=== PATIENT | female | born 1980 | race Caucasian/White ===

== ENCOUNTER 2022-12-06 11:26 | Outpatient (CLI) | payer BC, SELFPAY ==
[2022-12-06 11:51] LABS: Basophils Absolute Auto 0.01 K/mm3 (0.00-0.10); Basophils Percent Auto 0.2 % (0.0-1.0); Eosinophils Absolute Auto 0.07 K/mm3 (0.02-0.50); Eosinophils Percent Auto 1.2 % (1.0-6.0); Hematocrit 36.7 % (35.0-49.0); Hemoglobin 12.9 g/dL (12.0-15.0); Immature Granulocyte Absolute 0.01 K/mm3 (0.00-0.00); Immature Granulocyte Percent A 0.2 % (0.0-0.0); Lymphocytes Absolute Auto 1.25 K/mm3 (1.10-4.50); Lymphocytes Percent Auto 21.6 % (18.0-42.0); Mean Corpuscular HGB Conc 35.1 g/dL (32.0-36.0); Mean Corpuscular Hemoglobin 29.7 pg (27.0-31.0); Mean Corpuscular Volume 84.4 fL (78.0-102.0); Mean Platelet Volume 9.9 fl (9.2-11.8); Monocytes Absolute Auto 0.26 K/mm3 (0.10-0.90); Monocytes Percent Auto 4.5 % (2.0-11.0); Neutrophils Absolute Auto 4.2 K/mm3 (1.7-7.2); Neutrophils Percent Auto 72.3 % (50.0-70.0); Platelet Count Result 282 K/mm3 (150-420); Red Blood Count 4.35 M/mm3 (4.20-5.40); Red Cell Distribution Width 13.7 % (11.6-14.4); White Blood Count 5.8 K/mm3 (4.8-10.8)
[2022-12-06 11:57] LABS: Appearance Urine Slightly Cloudy (Clear); Bilirubin Urine Negative (Negative); Blood Urine Negative (Negative); Color Urine Yellow (Yellow); Glucose Urine UA 3+ (Negative); Ketones Urine Negative (Negative); Leukocyte Esterase Ur 1+ (Negative); Nitrate Urine Negative (Negative); Protein Urine Negative (Negative); Specific Grav Ur 1.025 (1.010-1.020); Urobilinogen Urine 0.2 mg/dL (0.2-1.0)
[2022-12-06 11:58] LABS: Creatinine Urine 108.31 mg/dL (40-278); MALB Creatinine Ratio 18.1 mg/g (0-30); Microalbumin Urine Random 19.7 mg/L
[2022-12-06 12:01] LABS: Add Urine Microscopic? YES; Bacteria Urine 1+ /hpf; RBC Urine 0-2 /hpf (0-2); Squamous Epithelial Cell Urine Moderate /hpf (Few)
[2022-12-06 12:17] LABS: Hemoglobin A1C 8.4 % (<5.7)
[2022-12-06 12:34] LABS: Alanine Aminotransferase 23 U/L (14-59); Albumin Level 3.8 g/dL (3.4-5.0); Alkaline Phosphatase 129 U/L (46-116); Anion Gap 11 mmol/L (8-16); Aspartate Amino Transferase 11 U/L (15-37); Bilirubin,Total 0.6 mg/dL (0.00-1.00); Blood Urea Nitrogen 8 mg/dL (7-18); Calcium 9.1 mg/dL (8.5-10.1); Carbon Dioxide 26 mmol/L (21-32); Chloride 100 mmol/L (98-108); Estimated Glomerular Filt Rate > 60; Glucose 266 mg/dL (70-99); Osmolality Calculated 291 mOsm/kg (285-295); Potassium 3.4 mmol/L (3.5-5.1); Sodium 137 mmol/L (136-145); Thyroid Stimulating Hormone 2.93 uIU/mL (0.36-3.74); Total Protein 7.4 g/dL (6.4-8.2)
== END 2022-12-06 11:27 | disposition home or self-care (01) ==
PROVIDERS: PCP Family Medicine; Visit Provider Family Medicine
DX: E11.9 Type 2 diabetes mellitus without complications (principal)
CPT/HCPCS: 36415; 80053; 81001; 82043; 83036; 84443; 85025

== ENCOUNTER 2023-12-19 16:18 | Outpatient (CLI) | payer MEDICARE, SELFPAY ==
--- NOTE | ~2023-12-19 | XR_ITS ---
EXAMINATION: XR ankle RT min 3V, XR ankle LT min 3V DATE: 12/19/2023 16:46 INDICATION: Bilateral ankle pain and effusions TECHNIQUE: 1. Anteroposterior, oblique and lateral views of the right ankle were obtained. 2. Anteroposterior, oblique and lateral views of the left ankle were obtained. COMPARISON: Right ankle radiograph dated 03/01/2013 FINDINGS: There is suggestion of persistent bilateral pes planus which was seen at the right but on the prior s tudy however the current radiographs are nonweightbearing which decreases specificity. Alignment is o therwise normal the bilateral ankles. No fracture. Joint spaces are normal at the bilateral ankles, m id and hindfeet. There is soft tissue swelling about the bilateral lower calves and ankles most promi nent over the lateral malleoli. No ankle joint effusions. IMPRESSION: 1. Pes planus which could be confirmed with lateral weightbearing radiographs of the feet. No other o sseous abnormality. 2. Nonspecific diffuse soft tissue swelling subcutaneous edema about the bilateral lower calves and a nkles. No ankle joint effusions. Reviewed, dictated and finalized at location A. IMPRESSION: 1. Pes planus which could be confirmed with lateral weightbearing radiographs o f the feet. No other osseous abnormality. 2. Nonspecific diffuse soft tissue swelling subcutaneous edema about the bilate ral lower calves and ankles. No ankle joint effusions.
== END 2023-12-19 16:19 | disposition home or self-care (01) ==
LOC: CHSIMG 16:25
PROVIDERS: PCP Family Medicine; Visit Provider Family Medicine
DX: M25.473 Effusion, unspecified ankle (principal); M21.42 Flat foot [pes planus] (acquired), left foot; M21.41 Flat foot [pes planus] (acquired), right foot; M79.89 Other specified soft tissue disorders
CPT/HCPCS: 73610

== ENCOUNTER 2025-05-18 14:04 | Outpatient (CLI) | payer MEDICARE, SELFPAY ==
--- NOTE | ~2025-05-18 | XR_ITS ---
EXAMINATION: XR shoulder LT min 2V, 05/18/2025 14:14 CDT HISTORY: Pain in L Shoulder COMPARISON: No comparisons available. Findings: No acute fracture or malalignment. No significant degenerative changes. Soft tissues unremarkable. Impression: No acute fracture or malalignment. Reviewed, dictated and finalized at location P. Impression: No acute fracture or malalignment.
--- NOTE | ~2025-05-18 | XR_ITS ---
EXAMINATION: XR ankle RT min 3V, 05/18/2025 14:14 CDT HISTORY: Pain in R ankle and joints in R foot COMPARISON: No comparisons available. Findings: No acute fracture or malalignment. No significant degenerative changes. Soft tissues unremarkable. Impression: No acute fracture or malalignment. Reviewed, dictated and finalized at location P. Impression: No acute fracture or malalignment.
--- NOTE | ~2025-05-18 | XR_ITS ---
EXAMINATION: XR foot RT min 3V, 05/18/2025 14:14 CDT HISTORY: Pain in L Shoulder, Pain in R Ankle and joints in R Foot COMPARISON: No comparisons available. Findings: No acute fracture or malalignment. No significant degenerative changes. Soft tissues unremarkable. Impression: No acute fracture or malalignment. Reviewed, dictated and finalized at location P. Impression: No acute fracture or malalignment.
--- OUTSIDE RECORDS SUMMARY | 2025-05-18 18:08 | XMS_ITS | Encounter Summary ---
Author Organization [facility] Address [facility] [place] [address] Care Team Providers Care Medication Reconciliation Technician Name Role Phone Shemar Calhoun MD Primary Care Provider Encounter Details Date Type Department Care Team (Late st Contact Info) Description 11/27/2016 Abstract [facility] CONVERSION [id number] [place] [address] , Generic ConversionMD Social History Tobacco Use Types Packs/Day Years Used Date Smoking Tobacco: Never Comments Unknown Sex and Gender Information Value Date Recorded Sex Assigned at Not on file Legal Sex Female 11:51 PM CDT Gender Identity Not on file Sexual Orientation Not on file documented as of this encounter Plan of Treatment Not on file documented as of this encounter Visit Diagnoses Not on filedocumented in this encounter Care Teams Medication Reconciliation Technician Relationship Specialty Start Date End Date Shemar Calhoun MD [address] [place] [phone] PCP - General FAMILY PRACTICE 06/15/19 documented as of this encounter
--- OUTSIDE RECORDS SUMMARY | 2025-05-18 18:08 | XMS_ITS | Clinical Summary ---
Author Organization [facility] Address [facility] [place] [address] Care Team Providers Care Java Android Developer Name Role Phone Shemar Jaime MD Primary Care Provider Family History Medical History Relation Comments Cancer Father Relation Status Comments Father Social History Tobacco Use Types Packs/Day Years Used Date Smoking Tobacco: Never Comments Unknown Sex and Gender Information Value Date Recorded Sex Assigned at Not on file Legal Sex Female 11:51 PM CDT Gender Identity Not on file Sexual Orientation Not on file Last Filed Vital Signs Vital Sign Reading Time Taken Comments Blood Pressure 111/91 05/13/2016 3:16 PM CDT Pulse 110 05/13/2016 3:16 PM CDT Temperature - - Respiratory Rate 16 10/07/2013 11:17 AM CDT Oxygen Saturation - - Inhaled Oxygen Concentration - - Weight 49.4 kg (109 lb) 05/13/2016 3:16 PM CDT Height 139.7 cm (4' 7) 05/13/2016 3:16 PM CDT Body Mass Index 25.33 05/13/2016 3:16 PM CDT Plan of Treatment Health Maintenance Due Date Last Done Comments Colorectal Cancer Screening Colonoscopy (10 Years) 1979 Annual Physical 09/29/1982 Hepatitis C 09/29/1997 DTaP, Tdap and Td Vaccines (1 - Tdap) 09/29/1998 05/17/1985, 10/06/1981, 04/01/1980, Additional history exists Hepatitis B Vaccines (1 of 3 - 19+ 3-dose series) 09/29/1998 HPV Vaccines (1 - 3-dose SCDM series) 09/29/2006 Cervical Cancer Screening Pap Smear (Age 30 to 64) Every 3 Years 08/05/2017 08/05/2014, 08/05/2014 Cervical Cancer Screening Pap with HPV Testing (Age 30 to 64) Every 5 Years 08/05/2019 08/05/2014, 08/05/2014 Cervical Cancer Screening with HPV 08/05/2019 Mammogram Screening 04/10/2023 04/10/2021, 0 COVID-19 Vaccine ( season) 2025 Influenza Adult (#1) 2025 Hepatitis A Vaccines Aged Out No long er eligible based on patient's age to complete this topic Meningococcal B Vaccine Aged Out No l onger eligible based on patient's age to complete this topic Meningococcal Vaccine Aged Out No gaudencio mell eligible based on patient's age to complete this topic Pneumococcal Vaccine: Pediatrics (0 to 5 Years) and At-Risk Patients (6 to 49 Years) Aged Out No longer eligible based on patient's age to complete this topic RSV Immunizations Under 20 Months Aged Out No longer eligible based on patient's age to complete this topic Procedures Procedure Name Priority Date/Time Associated Diagnosis Comments MG SCREENING W RODRIGUEZ TRISTIAN DIGI Routine 04/10/2021 1:54 PM CDT Visit for screening mammogram [facility] PAP REFLEX HPV MRNA E6/E7 Routine 08/05/2014 11:58 AM OCULAR PATHOLOGIST from Last 3 Months or Most Recently Relevant to Health Maintenance Results * MG SCREENING W RODRIGUEZ TRISTIAN DIGI (04/10/2021 1:54 PM CDT) Anatomical Region Laterality Modality Breast Bilateral Mammography 04/10/2021 5:29 PM CDT Impressions 04/10/2021 5:30 PM CDT IMPRESSION: No suspicious change since 01/18/2020. Recommendation: 1: Routine screening mammogram Bilateral in 1 Year Assessment: ACR BI-RADS Category 2 - Benign. Referred By: SHEMAR JAIME Interpreted By: Yung Castillo MD, 04/10/2021 5:29 PM Narrative 04/10/2021 5:30 PM CDT Examination: Digital screening mammogram with CAD. Clinical history: Asymptomatic patient presents for routine screening. Comparison: 01/18/2020. Technique: Bilateral digital mammograms. The exam was interpreted with the use of a computer-aided detection (CAD) system. Additional 3-D tomosynthesis images were acquired. Tissue density: The breast tissue is heterogeneously dense. Findings: The breast tissue is heterogeneously dense. The dense tissue may obscure some lesions mammographically. Benign-appearing calcification noted. No suspicious mass, microcalcification or area of architectural distortion can be identified. From a mammographic standpoint, routine followup in one year would seem adequate. us Shemar Jaime MD MAMMO Final Resul t * [facility] PAP REFLEX HPV MRNA E6/E7 (08/05/2014 11:58 AM OCULAR PATHOLOGIST) HPV MRNA E6/E7 Not Detected Not Detected [facility] TO EPIC CONVERSION Comment: This test was performed using the APTIMA HPV Assay ([employer] This assay detects E6/E7 viral messenger RNA (mRNA) from 14 high-risk HPV types (16,18,31,33,35,39,45,51,52,56,58,59,66,68). THIS TEST WAS PERFORMED AT [facility] [address], [place] [address] 08/05/2014 11:5 8 AM OCULAR PATHOLOGIST 08/05/2014 11:58 AM OCULAR PATHOLOGIST Narrative [facility] TO EPIC CONVERSION - 08/11/2014 10:54 AM OCULAR PATHOLOGIST This lab was migrated from [facility] and may be missing annotations or result text, please check the Media tab for the most complete results. us Nelida Gillespie MD PATHOLOGY/CYTOLOGY ORDERABLES F inal Result [facility] TO EPIC CONVERSION from Last 3 Months or Most Recently Relevant to Health Maintenance Insurance MEDICARE MEDICAID Care Teams Java Android Developer Relationship Specialty Start Date End Date Shemar Jaime MD [address] [place] [phone] PCP - General FAMILY PRACTICE 06/15/19
== END 2025-05-18 14:05 | disposition home or self-care (01) ==
LOC: CHSIMG 14:09
PROVIDERS: PCP Family Medicine; Visit Provider Family Medicine
DX: M25.512 Pain in left shoulder (principal); M25.571 Pain in right ankle and joints of right foot
CPT/HCPCS: 73030; 73610; 73630